=== PATIENT | male | born 1960 | race Caucasian/White ===

== ENCOUNTER 2019-09-04 15:19 | Observation (INO) ==
[2019-09-04] MEDS ORDERED: MORPHINE 4 MG/1 ML VIAL IV PRN (16:14)
[2019-09-04] MEDS ORDERED: ACETAMINOPHEN 325 MG TABLET PO PRN (16:14)
[2019-09-04] MEDS ORDERED: PROMETHAZINE 25 MG/1 ML VIAL IV PRN (16:14)
[2019-09-04] MEDS ORDERED: LACTATED RINGERS 1,000 ML IV ONE (16:37)
[2019-09-04 17:13] LABS: Basophils % 0.4 % (0.0-0.8); Eosinophils # 0.1 10*3/uL (0.0-0.87); Eosinophils % 1.1 % (0.00-10.9); Hematocrit 50.4 VOL% (42.0-52.0); Hemoglobin 16.9 GM/DL (14.0-18.0); Immature Granulocytes % 0.5 %; Immature Granulocytes Absolute 0.05 #; Lymphocytes # 1.4 10*3/uL (1.4-4.0); Lymphocytes % 12.8 % (21.2-54.2); Mean Corpuscular HGB Conc 33.5 GM/DL (32-36); Mean Platelet Volume 10.4 FL (9.6-12.0); Monocytes % 7.3 % (1.7-12.7); Neutrophils % 77.9 % (38.7-73.9); Platelet Count 197 T/CUMM (130-400); Red Blood Count 6.15 MC/CUMM (3.8-5.5); Red Cell Distribution Width 16.1 % (9.3-17.3); White Blood Count 10.7 T/CUMM (4-12)
[2019-09-04 17:34] LABS: Albumin 3.9 G/DL (3.4-5.0); Bilirubin,Total 1.4 MG/DL (0.2-1.0); Calcium 9.1 MG/DL (8.5-10.1); Osmolality,Calculated 275.7 MOS/KG (273-304); Total Protein 7.8 G/DL (6.4-8.3)
[2019-09-04 17:41] LABS: Thyroid Stimulating Hormone 1.63 uIU/ml (0.358-3.74)
[2019-09-04] MEDS ORDERED: hydrALAZINE 20 MG/1 ML VIAL IV ONE (20:04)
[2019-09-05] MEDS: SODIUM CHLORIDE 0.9% 1,000 ML IV SCH ×3 (00:30→12:06)
[2019-09-05 05:35] LABS: Basophils % 0.3 % (0.0-0.8); Eosinophils # 0.2 10*3/uL (0.0-0.87); Eosinophils % 1.3 % (0.00-10.9); Hematocrit 47.7 VOL% (42.0-52.0); Hemoglobin 15.9 GM/DL (14.0-18.0); Immature Granulocytes % 0.4 %; Immature Granulocytes Absolute 0.05 #; Lymphocytes # 1.5 10*3/uL (1.4-4.0); Lymphocytes % 12.3 % (21.2-54.2); Mean Corpuscular HGB Conc 33.3 GM/DL (32-36); Mean Corpuscular Volume 82.4 FL (87-102); Mean Platelet Volume 10.7 FL (9.6-12.0); Monocytes % 9.3 % (1.7-12.7); Neutrophils % 76.4 % (38.7-73.9); Platelet Count 183 T/CUMM (130-400); Red Blood Count 5.79 MC/CUMM (3.8-5.5); Red Cell Distribution Width 15.9 % (9.3-17.3); White Blood Count 11.9 T/CUMM (4-12)
[2019-09-05 06:00] LABS: Calcium 8.2 MG/DL (8.5-10.1); Osmolality,Calculated 275.5 MOS/KG (273-304)
[2019-09-05 06:31] LABS: Risk Ratio 3.79
[2019-09-05] MEDS: ONDANSETRON 4 MG/2 ML VIAL IV PRN ×3 (07:35→16:37)
[2019-09-05] MEDS ORDERED: KETOROLAC 30 MG/1 ML VIAL IV ONE (07:44)
[2019-09-05] MEDS ORDERED: FAMOTIDINE 20 MG/2 ML VIAL IV SCH (08:00)
[2019-09-05 08:41] LABS: Apearance,Urine CLEAR (Clear); Bilirubin,Urine Negative (Negative); Blood, Urine Negative (Negative); Glucose,Urine (UA) Negative (Negative); Ketones,Urine 5 mg/dL (Negative); Nitrite,Urine Negative (Negative); Protein,Urine Negative; RBC,Urine 1 /HPF (0-4); Urine Color Yellow (Yellow); Urine Specific Gravity 1.016 (1.001-1.035); Urine Urobilinogen < 2.0 EU/DL (0.2-1.0); WBC,Urine <1 /HPF (0-6)
[2019-09-05] MEDS ORDERED: PANTOPRAZOLE 40 MG TABLET PO SCH (09:00)
[2019-09-05] MEDS ORDERED: hydrALAZINE 20 MG/1 ML VIAL IV ONE (11:18)
[2019-09-05] MEDS ORDERED: hydrALAZINE 20 MG/1 ML VIAL IV PRN (11:18)
[2019-09-05] MEDS ORDERED: KETOROLAC 15 MG/1 ML VIAL IV ONE (11:25)
[2019-09-05] MEDS ORDERED: CYPROHEPTADINE 4 MG TABLET PO PRN (11:26)
[2019-09-05] MEDS ORDERED: NAPROXEN 500 MG TABLET PO PRN (11:27)
[2019-09-05] MEDS: LOSARTAN 50 MG TABLET PO SCH (12:53)
[2019-09-05] MEDS: amLODIPine 10 MG TABLET PO SCH (12:54)
[2019-09-05] MEDS: CYPROHEPTADINE 4 MG TABLET PO SCH ×2 (12:55→16:36)
[2019-09-05] MEDS ORDERED: HYDROmorphone 2 MG/1 ML VIAL IM PRN (14:52)
[2019-09-05] MEDS: HYDROmorphone 2 MG/1 ML VIAL IV PRN (15:07)
[2019-09-05] MEDS ORDERED: cloNIDine 0.3 MG/24 HR PATCH TRANSDERM SCH (16:00)
[2019-09-05] MEDS ORDERED: METOCLOPRAMIDE 10 MG/2 ML VIAL IV ONE (16:02)
[2019-09-05] MEDS: DEXT 5% NACL 0.45% KCL 20 MEQ 20 MEQ/1,000 ML BAG IV SCH ×2 (16:40→23:24)
[2019-09-05] MEDS: PROCHLORPERAZINE 5 MG TABLET PO SCH ×2 (16:42→21:42)
[2019-09-05] MEDS: METOCLOPRAMIDE 10 MG/2 ML VIAL IV SCH (17:24)
[2019-09-05] MEDS ORDERED: METOCLOPRAMIDE 10 MG/2 ML VIAL IV SCH (18:00)
[2019-09-05] MEDS: PANTOPRAZOLE 40 MG VIAL IV SCH (21:42)
[2019-09-06] MEDS: HYDROmorphone 2 MG/1 ML VIAL IV PRN (00:24)
[2019-09-06] MEDS: METOCLOPRAMIDE 10 MG/2 ML VIAL IV SCH ×2 (00:24→06:54)
[2019-09-06] MEDS: DEXT 5% NACL 0.45% KCL 20 MEQ 20 MEQ/1,000 ML BAG IV SCH ×2 (06:53→13:22)
[2019-09-06] MEDS: LOSARTAN 50 MG TABLET PO SCH ×2 (09:05→20:17)
[2019-09-06] MEDS: PANTOPRAZOLE 40 MG VIAL IV SCH (09:05)
[2019-09-06] MEDS: amLODIPine 10 MG TABLET PO SCH (09:05)
[2019-09-06] MEDS: PROCHLORPERAZINE 5 MG TABLET PO SCH ×3 (09:05→20:19)
[2019-09-06] MEDS ORDERED: ALPRAZolam 0.25 MG TABLET PO PRN (11:18)
[2019-09-06] MEDS ORDERED: LOSARTAN 50 MG TABLET PO SCH (11:30)
[2019-09-06] MEDS ORDERED: METOCLOPRAMIDE 10 MG TABLET PO SCH (11:30)
[2019-09-06] MEDS ORDERED: diphenhydrAMINE 50 MG/1 ML VIAL IV ONE ×2 (12:31→13:48)
[2019-09-06] MEDS ORDERED: AZITHROMYCIN INJ 500 MG in SODIUM CHLORIDE 0.9% 250 ML IV SCH (13:00)
[2019-09-06] MEDS: PANTOPRAZOLE 40 MG TABLET PO SCH (20:17)
[2019-09-06] MEDS: cloNIDine 0.1 MG TABLET PO SCH (20:19)
[2019-09-07 04:54] LABS: Calcium 8.1 MG/DL (8.5-10.1)
[2019-09-07 07:56] VITALS: BP 118/75
[2019-09-07] MEDS: LOSARTAN 50 MG TABLET PO SCH (09:12)
[2019-09-07] MEDS: PANTOPRAZOLE 40 MG TABLET PO SCH (09:12)
[2019-09-07] MEDS: cloNIDine 0.1 MG TABLET PO SCH (09:13)
== END 2019-09-07 10:45 | disposition home or self-care (01) ==
LOC: N.4E → SUATTDRO 15:33
PROVIDERS: ADMIT Internal Medicine; ATTEND Hospitalist